=== PATIENT | male | born 1955 | race Caucasian/White ===

== ENCOUNTER 2023-03-14 07:09 | Outpatient (OUT) | payer MEDICARE, OTHER, SELFPAY ==
[2023-03-14 07:38] LABS: Basophils Absolute Auto 0.1 10^3/uL (0.0-0.1); Basophils Percent Auto 1.3 % (0.2-2.0); Eosinophils Absolute Auto 0.3 10^3/uL (0.0-0.7); Eosinophils Percent Auto 6.5 % (0.9-7.0); Hematocrit 41.7 % (42.0-54.0); Hemoglobin 13.8 g/dL (14.0-18.0); Immature Granulocytes Abs Auto 0.01 10^3/uL (0.00-0.03); Immature Granulocytes Pct Auto 0.2 % (0.0-0.5); Lymphocytes Absolute Auto 1.4 10^3/uL (1.2-3.8); Lymphocytes Percent Auto 29.6 % (20.5-60.0); Mean Corpuscular HGB Conc 33.1 g/dL (29.9-35.2); Mean Corpuscular Hemoglobin 32.2 pg (25.9-34.0); Mean Corpuscular Volume 97.2 fL (80.0-94.0); Monocytes Absolute Auto 0.7 10^3/uL (0.3-0.8); Neutrophils Absolute Auto 2.3 10^3/uL (1.4-6.5); Neutrophils Percent Auto 48.4 % (43.0-75.0); Platelet Count 220 10^3/uL (150-450); Red Blood Count 4.29 10^6/uL (4.70-6.10); Red Cell Distribution Width 11.9 % (11.0-15.0); White Blood Count 4.8 10^3/uL (4.0-11.0)
[2023-03-14 08:46] LABS: Alanine Aminotransferase 39 U/L (16-63); Albumin Globulin Ratio 1.3; Albumin Level 3.9 g/dL (3.4-5.0); Alkaline Phosphatase 56 U/L (46-116); Anion Gap 12.4; Aspartate Amino Transferase 25 U/L (15-37); BUN Creatinine Ratio 20.2; Bilirubin Direct 0.1 mg/dL (0.0-0.2); Bilirubin Total 0.4 mg/dL (0.2-1.0); Calcium 8.9 mg/dL (8.5-10.1); Carbon Dioxide 28.1 mmol/L (21.0-32.0); Chloride 106 mmol/L (98-107); Chol HDL Ratio 2.8; Cholesterol 210 mg/dL (<=200); Estimated GFR (African America >60 (>=60); Estimated GFR (Non-African Ame >60 (>=60); Globulin 3.1 g/dL; Glucose 93 mg/dL (74-106); HDL Cholesterol 75 mg/dL (40-60); Potassium 4.5 mmol/L (3.5-5.1); Sodium 142 mmol/L (136-145); Triglycerides 49 mg/dL (<=150); VLDL CHOLESTEROL 9.8 mg/dL
[2023-03-14 08:56] LABS: Prostate Specific Antigen Scrn 3.12 ng/mL (<=4.00)
== END 2023-03-14 07:10 | disposition home or self-care (01) ==
LOC: LAB 07:14
PROVIDERS: PCP Family Medicine; Visit Provider Family Medicine
DX: Z79.899 Other long term (current) drug therapy (principal); E55.9 Vitamin D deficiency, unspecified; E78.5 Hyperlipidemia, unspecified; Z12.5 Encounter for screening for malignant neoplasm of prostate
CPT/HCPCS: 36415; 80048; 80061; 80076; 82306; 85025; G0103

== ENCOUNTER 2024-03-26 07:46 | Outpatient (OUT) | payer MEDICARE, OTHER, SELFPAY ==
--- OUTSIDE RECORDS SUMMARY | 2024-03-26 08:00 | XMS_ITS | CCD ---
Author Organization [facility] Care Team Providers Care Human Resources Partner Name Role Phone JUAN, Tapan Luther Attending Unavailable NILL, Tapan Luther Attending Unavailable NILL ., DR BARNES Admitting Unavailable NILL ., DR BARNES Attending Unavailable NADERER, DR JAN Goodson Primary Care Unavailable NILL ., DR BARNES Consulting Unavailable DEVORAH, IRLANDA ROGER Consulting Unava ilable GEMBUS, DARIN Consulting Unavailable MISC, DR LOU Admitting Unavailable MISC, DR LOU Attending Unavailable NADERER, DR JAN Goodson Primary Care Unavailable MISC, DR LOU Consulting Unavailable NADERER, DR JAN Goodson Admitting Unavailable NADERER, DR JAN Goodsno Attending Unavailable NADERER, DR JAN Goodson Primary Care Unavailable NADERER, DR JAN Goodson Consulting Unavailable NILL ., DR BARNES Admitting Unavailable NILL ., DR BARNES Attending Unavailable NADERER, DR JAN Goodson Primary Care Unavailable NILL ., DR BARNES Consulting Unavailable Allergies Allergy Classification Reported Allergen(s) Allergy Type Date of Onset Reaction(s) Facility (1 source) No Known Medication Allergies; Translations: [No Known Medication Allergies] Propensity to adverse reactions (disorder) [facility] Repository Problems Active Problems Problem Classification Problem Date Documented Da te Episodic/Chronic Disorders of lipid metabolism (1 source) Hyperlipidemia, unspecified; Translations: [HYPERLIPIDEMIA UNSPECIFIED] Onset: 04-19-2022 Chronic Nutritional deficiencies (4 sources) Vitamin D deficiency, unspecified; Translations: [VITAMIN D DEFICIENCY UNSPECIFIED] Onset: 07-10-2022 Chronic Other screening for suspected conditions (not mental disorders or infectious disease) (5 sources) Encounter for screening for malignant neoplasm of colon; Translations: [Encounter for screening for malignant neoplasm of prostate] Onset: 03-12-2022 Episodic Unclassified (1 source) CONTACT W/AND (SUSP) EXPOS COVID-19; Translations: [CONTACT W/AND (SUSP) EXPOS COVID-19] Onset: 04-14-2022 Past or Other Problems Problem Classification Problem Date Documented Da te Episodic/Chronic Other aftercare (1 source) Other half-way (current) drug therapy; Translations: [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 Nestor Torres VIT D RANGES SEE BELOW Normal [facility] Comment on above: Result Comment: <20 ng/mL Vit D deficient 20 - <30 ng/mL Vit D insufficient 30 - 100 ng/mL Vit D sufficient >100 ng/mL Potential Toxicity Performed By: #### V ITAD #### [facility] [address] [place] [address] Dr. Nestor Torres Outside Colonoscopyon 2021 Outside Colonoscopy [id number] #1.00CD:127 Normal [facility] Reminderson 04-16-2022 Reminders - From: Brianna Estrada LPN To: N - Clinical; Sent: 04/16/2022 10:26:01 EST Show up: 03/14/2032 07:00:00 EST Subject: colonoscopy recall Due Date/Time: 04/13/2032 07:00:00 EST Reminder/Recall Patient is due for screening colonoscopy 04/13/2032. Normal [facility] Lab Reportson 04-11-2022 Lab Reports [id number] #1.00CD:127 Normal [facility]on SARS-CoV-2 (COVID-19) RNA LIZETT+probe Ql (Unsp spec) Not detected Normal NOT DETECTED [facility] Comment on above: Result Comment: This test is not yet approved or cleared by the [place] FDA. When there are no FDA-approved or cleared tests available, and other criteria are met, FDA can make tests available under an emergency access mechanism called an Emergency Use Authorization (EUA). The EUA for this test is supported by the [place] of Health and Human Service's (HHS's) declaration that circumstances exist to justify the emergency use of in vitro diagnostics for the detection and/or diagnosis of the virus that causes COVID-19. This EUA will remain in effect (meaning this test can be used) for the duration of the COVID-19 declaration justifying emergency of IVDs, unless it is terminated or revoked by FDA (after which the test may no longer be used). When diagnostic testing is negative, the possibility of a false negative should be considered in the context of a patient's recent exposures and the presence of clinical signs and symptoms consistent with SARS-CoV-2. Performed By: #### [facility] #### [facility] [address] [place] [address] Dr. Nestor Torres Consent for Procedure/Surger yon 04-05-2022 Consent for Procedure/Surgery [id number] #1.00CD:127 Normal [facility] Facesheeton 04-05-2022 Facesheet [id number] #1.00CD:127 Normal [facility] Physician Referralon 022 Physician Referral [id number] #1.00CD:127 Normal [facility] CBC AUTO DIFFon 03-07-2022 BASO # 0.1 103/ul Normal 0.0-0.1 [facility] Comment on above: Performed By: #### C BC #### [facility] [address] [place] [address] Dr. Nestor Torres Basophils/100 WBC (Bld) 0.8 % Normal 0.2-2.0 [facility] Comment on above: Performed By: #### C BC #### [facility] [address] [place] [address] Dr. Nestor Torres EO # 0.3 103/ul Normal 0.0-0.7 [facility] Comment on above: Performed By: #### C BC #### [facility] [address] [place] [address] Dr. Nestor Torres Eosinophils/100 WBC (Bld) 4.7 % Normal 0.9-7.0 [facility] Comment on above: Performed By: #### C BC #### [facility] [address] [place] [address] Dr. Nestor Torres Erythrocyte distribution width (RBC) [Ratio] 14.6 % Normal 11.0-15.0 [facility] Comment on above: Performed By: #### C BC #### [facility] [address] [place] [address] Dr. Nestor Torres Hematocrit (Bld) [Volume fraction] 40.5 % Critically low 42.0-54.0 [facility] Comment on above: Performed By: #### C BC #### [facility] [address] [place] [address] Dr. Nestor Torres Hemoglobin (Bld) [Mass/Vol] 13.3 g/dL Critically low 14.0-18.0 [facility] Comment on above: Performed By: #### C BC #### [facility] [address] [place] [address] Dr. Nestor Torres IG # 0.03 10e3/ul Normal 0.00-0.03 [facility] Comment on above: Performed By: #### C BC #### [facility] [address] [place] [address] Dr. Nestor Torres IG % 0.5 % Normal 0.0-0.5 [facility] Comment on above: Performed By: #### C BC #### [facility] [address] [place] [address] Dr. Nestor Torres LYMPH # 1.2 103/ul Normal 1.2-3.8 [facility] Comment on above: Performed By: #### C BC #### [facility] [address] [place] [address] Dr. Nestor Torres Lymphocytes/100 WBC (Bld) 18.5 % Critically low 20.5-60.0 [facility] Comment on above: Performed By: #### C BC #### [facility] [address] [place] [address] Dr. Nestor Torres MANUAL DIFF REQ NO Normal [facility] Comment on above: Performed By: #### C BC #### [facility] [address] [place] [address] Dr. Nestor Torres MCH (RBC) [Entitic mass] 30.0 pg Normal 25.9-34.0 [facility] Comment on above: Performed By: #### C BC #### [facility] [address] [place] [address] Dr. Nestor Torres MCHC (RBC) [Mass/Vol] 32.8 g/dL Normal 29.9-35.2 [facility] Comment on above: Performed By: #### C BC #### [facility] [address] [place] [address] Dr. Nestor Torres MCV (RBC) [Entitic vol] 91.4 fL Normal 80.0-94.0 [facility] Comment on above: Performed By: #### C BC #### [facility] [address] [place] [address] Dr. Nestor Torres MONO # 0.8 103/ul Normal 0.3-0.8 [facility] Comment on above: Performed By: #### C BC #### [facility] [address] [place] [address] Dr. Nestor Torres Monocytes/100 WBC (Bld) 12.0 % Normal 1.7-12.0 [facility] Comment on above: Performed By: #### C BC #### [facility] [address] [place] [address] Dr. Nestor Torres NEUT # 4.2 103/ul Normal 1.4-6.5 [facility] Comment on above: Performed By: #### C BC #### [facility] [address] [place] [address] Dr. Nestor Torres Neutrophils/100 WBC (Bld) 63.5 % Normal 43.0-75.0 [facility] Comment on above: Performed By: #### C BC #### [facility] [address] [address] [address] Nestor Torres Platelet mean volume (Bld) [Entitic vol] 10.8 fL Normal 9.5-13.5 [facility] Comment on above: Performed By: #### C BC #### [facility] [address] [place] [address] Dr. Nestor Torres PLT 277 103/ul Normal 150-450 [facility] Comment on above: Performed By: #### C BC #### [facility] [address] [address] [address] Nestor Torres RBC 4.43 106/ul Critically low 4.70-6.10 [facility] Comment on above: Performed By: #### C BC #### [facility] [address] [place] [address] Dr. Nestor Torres WBC 6.7 103/ul Normal 4.0-11.0 [facility] Comment on above: Performed By: #### C BC #### [facility] [address] [place] [address] Dr. Nestor Torres LIPID PROFILEon 03-07-2022 CHOL-HDL RATIO NORM SEE BELOW Normal [facility] Comment on above: Result Comment: 3.3 - 4.4 LOW RISK 4.4 - 7.1 AVERAGE RISK 7.1 - 11.0 MODERATE RISK >11.0 HIGH RISK Performed By: #### L KRANTHI IVERSON, LIPID #### [facility] [address] [place] [address] Dr. Nestor Torres Cholesterol [Mass/Vol] 192 mg/dL Normal <=200 [facility] Comment on above: Performed By: #### L KRANTHI IVERSON, LIPID #### [facility] [address] [place] [address] Dr. Nestor Torres Cholesterol in HDL [Mass/Vol] 69 mg/dL Critically high 40-60 [facility] Comment on above: Performed By: #### L KRANTHI IVERSON, LIPID #### [facility] [address] [place] [address] Dr. Nestor Torres Cholesterol in LDL [Mass/Vol] 103.0 mg/dL Normal [facility] Comment on above: Performed By: #### L IVKRANTHI FREIRE, LIPID #### [facility] [address] [place] [address] Dr. Nestor Torres Cholesterol.total/Ch olesterol in HDL [Mass ratio] 2.8 {ratio} Normal [facility] Comment on above: Performed By: #### L IVTANI BMP, LIPID #### [facility] [address] [address] [address] Nestor Torres HDL NORMAL > or = 60 mg/dl - LOW CARDIOVASCULAR RISK <40 mg/dl - HIGH CARDIOVASCULAR RISK Normal [facility] Comment on above: Performed By: #### L IVKRANTHI FREIRE, LIPID #### [facility] [address] [place] [address] Dr. Nestor Torres LDL CALC NORMAL SEE BELOW Normal [facility] Comment on above: Result Comment: <100 mg/dl OPTIMAL 100 - 129 mg/dl NEAR OR ABOVE OPTIMAL 130 - 159 mg/dl BORDERLINE HIGH 160 - 189 mg/dl HIGH >190 mg/dl VERY HIGH Performed By: #### L IVKRANTHI FREIRE, LIPID #### [facility] [address] [place] [address] Dr. Nestor Torres Triglyceride [Mass/Vol] 100 mg/dL Normal <=150 [facility] Comment on above: Performed By: #### L IVKRANTHI FREIRE, LIPID #### [facility] [address] [place] [address] Dr. Nestor Torres VLDL CALC 20.0 mg/dL Normal [facility] Comment on above: Performed By: #### L IVTANI BMP, LIPID #### [facility] [address] [address] [address] Nestor Torres LIVER PROFILEon 03-07-2022 Albumin [Mass/Vol] 4.1 g/dL Normal 3.4-5.0 [facility] Comment on above: Performed By: #### L IVTANI BMP, LIPID #### [facility] [address] [address] [address] Nestor Torres Albumin/Globulin [Mass ratio] 1.4 {ratio} Normal [facility] Comment on above: Performed By: #### L IVER, BMP, LIPID #### [facility] [address] [place] [address] Dr. Nestor Torres ALP [Catalytic activity/Vol] 57 U/L Normal 46-116 [facility] Comment on above: Performed By: #### L IVER, BMP, LIPID #### [facility] [address] [place] [address] Dr. Nestor Torres ALT [Catalytic activity/Vol] 43 U/L Normal 16-63 [facility] Comment on above: Performed By: #### L IVER, BMP, LIPID #### [facility] [address] [place] [address] Dr. Nestor Torres AST [Catalytic activity/Vol] 26 U/L Normal 15-37 [facility] Comment on above: Performed By: #### L IVER, BMP, LIPID #### [facility] [address] [place] [address] Dr. Nestor Torres BILI, CONJUGATED 0.1 mg/dL Normal 0.0-0.2 [facility] Comment on above: Performed By: #### L IVER, BMP, LIPID #### [facility] [address] [place] [address] Dr. Nestor Torres Bilirubin [Mass/Vol] 0.4 mg/dL Normal 0.2-1.0 [facility] Comment on above: Performed By: #### L IVER, BMP, LIPID #### [facility] [address] [place] [address] Dr. Nestor Torres Globulin (S) [Mass/Vol] 2.9 g/dL Normal [facility] Comment on above: Performed By: #### L IVER, BMP, LIPID #### [facility] [address] [place] [address] Dr. Nestor Torres Protein [Mass/Vol] 7.0 g/dL Normal 6.4-8.2 [facility] Comment on above: Performed By: #### L IVER, BMP, LIPID #### [facility] [address] [place] [address] Dr. Nestor Torres PROF CHEM 8 (BAS METB)on Anion gap [Moles/Vol] 10.6 mmol/L Normal [facility] Comment on above: Performed By: #### L IVER, BMP, LIPID #### [facility] [address] [place] [address] Dr. Nestor Torres Calcium [Mass/Vol] 9.6 mg/dL Normal 8.5-10.1 [facility] Comment on above: Performed By: #### L IVER, BMP, LIPID #### [facility] [address] [place] [address] Dr. Nestor Torres Chloride [Moles/Vol] 105 mmol/L Normal 98-107 [facility] Comment on above: Performed By: #### L IVER, BMP, LIPID #### [facility] [address] [place] [address] Dr. Nestor Torres CO2 [Moles/Vol] 28.2 mmol/L Normal 21.0-32.0 [facility] Comment on above: Performed By: #### L IVER, BMP, LIPID #### [facility] [address] [place] [address] Dr. Nestor Torres Creatinine [Mass/Vol] 1.03 mg/dL Normal 0.70-1.30 [facility] Comment on above: Performed By: #### L IVER, BMP, LIPID #### [facility] [address] [place] [address] Dr. Nestor Torres EGFR-AF MALAGASY >60 Normal >=60 [facility] Comment on above: Performed By: #### L IVER, BMP, LIPID #### [facility] [address] [place] [address] Dr. Nestor Torres EGFR-NON AF MALAGASY >60 Normal >=60 [facility] Comment on above: Performed By: #### L IVER, BMP, LIPID #### [facility] [address] [place] [address] Dr. Nestor Torres Glucose [Mass/Vol] 113 mg/dL Critically high 74-106 [facility] Comment on above: Performed By: #### L IVER, BMP, LIPID #### [facility] [address] [address] [address] Nestor Torres Potassium [Moles/Vol] 3.8 mmol/L Normal 3.5-5.1 [facility] Comment on above: Performed By: #### L IVER, BMP, LIPID #### [facility] [address] [address] [address] Nestor Torres Sodium [Moles/Vol] 140 mmol/L Normal 136-145 [facility] Comment on above: Performed By: #### L IVER, BMP, LIPID #### [facility] [address] [address] [address] Nestor Torres Urea nitrogen [Mass/Vol] 22.0 mg/dL Critically high 7.0-18.0 [facility] Comment on above: Performed By: #### L IVER, BMP, LIPID #### [facility] [address] [place] [address] Dr. Nestor Torres Urea nitrogen/Creatinine [Mass ratio] 21.4 mg/mg Normal [facility] Comment on above: Performed By: #### L IVER, BMP, LIPID #### [facility] [address] [place] [address] Dr. Nestor Torres VITAMIN D 25 OHon 03-07-2022 VIT D 25-OH 29.6 ng/mL Normal [facility] Comment on above: Performed By: #### P DON, VITAD #### [facility] [address] [place] [address] Dr. Nestor Torres VIT D RANGES SEE BELOW Normal [facility] Comment on above: Result Comment: <20 ng/mL Vit D deficient 20 - <30 ng/mL Vit D insufficient 30 - 100 ng/mL Vit D sufficient >100 ng/mL Potential Toxicity Performed By: #### P SASC, VITAD #### [facility] [address] [place] [address] Dr. Nestor Torres Encounters Encounter Date Encounter Type Care Provider Facility Start: 07-10-2022 End: [address] DOCTOR MARTINEZ Facility:[facility] Start: 04-14-2022 Encounter for prepro cedural laboratory examination DR TAPAN WOODS . [facility] Start: 04-13-2022 End: 04-14-2022 ambulatory Tapan WOODS Facility:CD:[id number] Start: 04-10-2022 End: 04-11-[address] TAPAN WOODS . Facility:[facility] Start: 04-10-2022 End: 04-11-2022 Encounter for preprocedural laboratory examination DR TAPAN WOODS . Facility:[facility] Start: 04-04-2022 End: 04-05-2022 ambulatory Tapan WOODS Facility:[facility]3] Start: 03-21-2022 ambulatory Tapan WOODS Facility:[facility] Start: 03-07-2022 End: 03-08-[address] JAN COLON Facility:[facility] Procedures Date Procedure Procedure Detail Performing Clinician Start: 03-07-[address] LOGAN WOODS . Comment on above: Performed By: #### P [facility], VITAD #### [facility] [address] [place] [address] Dr. Nestor Torres Payers Date Payer Category Payer Medicare [id number] 1961 Private Health Insurance [id number] 1955 Unknown [id number] [id number] 1955 Unknown [id number] 1955 Unknown [id number] 2.16.84 [id number] 1955 Unknown [id number] 2.16.84 [id number] 1955 Unknown [id number] 2.16.84 [id number] 1955 Unknown [id number] 2.16.84 [id number] Clinical Note 04-13-2022 Note Date & Type Note Facility 04-13-2022 Note OPERATIVE NOTE OPERATION DATE: 04/13/2022 PREOPERATIVE DIAGNOSIS: Colorectal screening. POSTOPERATIVE DIAGNOSIS: Normal colonoscopy to cecum. PROCEDURE: Colonoscopy to cecum. SURGEON: Tapan Woods M.D. ANESTHESIA: Monitored anesthesia care. ESTIMATED BLOOD LOSS: Zero. INDICATIONS AND CONSENT: Patient is a 66-year-old male who presents for colorectal screening. Indications, risks, benefits, alternatives of proceeding with colonoscopy were explained extensively to the patient, including the risks of bleeding, colon perforation or anesthetic complications. All of his questions were answered. Informed consent was obtained. PROCEDURE: Patient brought to the operating room, placed in the left lateral decubitus position. Monitored anesthesia care was provided. Rectal exam was performed which showed no masses or blood. The scope was inserted into the anal canal. Under direct visualization was advanced. With the aid of abdominal compression, it was advanced to the cecum where cecal markings were clearly identified. Upon withdrawal of the scope, mucosal surfaces were carefully examined. There were no mass lesions or polyps. No inflammatory changes or ulcerations. No significant diverticulosis. The scope was retroflexed in the anal canal. There were noted to be some prominent rectal veins. Scope was then withdrawn. Patient tolerated procedure well, was sent to recovery room in good condition. CC: Jan Colon M.D. [facility] Clinical Note 04-04-2022 Note Date & Type Note Facility 04-04-2022 Note Chief Complaint consultation for screening colonoscopy HPI Staff 66 year old male presents on consultation from Dr. Colon for screening colonoscopy. Denies abdominal or rectal pain. No rectal bleeding or change in bowel habits. Denies nausea or vomiting. No unexplained weight loss. Last colonoscopy completed greater than 10 years ago. No known family history of colon cancer, patient is adopted. History of Present Illness 66 yo male referred for colorectal screening; denies change in bms or blood in stools; no abdominal complaints; denies asa or NSAID use, no SBE prophylaxis; no previous abdominal operations, last colonoscopy > 10 years ago, reportedly wnl; no fmhx of GI malignancy or IBD; no tobacco use. Review of Systems PHQ Score Initial Depression Screen Score: 0 ROS - Provider Constitutional: no fever, no sweats, no weight loss. Eyes: no glasses, no blurred vision, no visual loss. ENMT: no dentures, no hoarseness, no swallowing difficulties, no hearing loss, no ear infection(s), no nose bleeds. Cardiovascular: normal blood pressure, no chest pain, regular heartbeat, no heart murmur. Respiratory: no shortness of breath, no cough, no asthma, no wheezing. Gastrointestinal: no nausea, no vomiting, no diarrhea, no constipation, no blood in stool, no change in bowel habits, no abdominal pain, no hepatitis. Genitourinary: no kidney stones, no urine infection, no dysuria. Musculoskeletal: no pain, no weakness. Skin: no changing moles, no rash, no skin lumps. Neurologic: no seizures, no epilepsy, no headache. Psychiatric: no emotional or psychiatric problem. Heme/Lymph: no bleeding problems, no anemia, no blood clots, no transfusions. Allergy/Immunologic: no swollen lymph nodes/glands, no IV drug abuse. Other: Additional ROS info: Except as noted in the above Review of Systems and in the History of Present Illness, all other systems have been reviewed and are negative or noncontributory. Physical Exam Vitals & Measurements HR: 72(Peripheral) RR: 16 BP: 160/98 HT: 70 in HT: 177.8 cm WT: 74.8 kg WT: 164.56 lb BMI: 23.66 HEENT: normal conjunctiva, sclera clear, no scleral icterus, EOM intact, PERRLA, oral mucosa moist without lesions. Neck: trachea midline, no mass, symmetric, no thyromegaly or nodules, no adenopathy Respiratory: lungs CTA, respirations non labored. Cardiovascular: regular rate and rhythm, no murmur, no pedal edema or varicosities. Gastrointestinal: soft, non distended, no tenderness, no masses, no palpable hernias, diastasis recti no, no hepatosplenomegaly; normal bs Lymphatic: no cervical adenopathy, Musculoskeletal: normal gait, digits and nails without infection, nodes, cyanosis, clubbing. Skin: no rashes, no lesions, no ulcers, no subcutaneous nodules, induration. Psychiatric/Neuro: oriented to time, place, person, judgement normal, affect appropriate for age, insight intact, no focal deficits. Tests: labs reviewed,, review of old records completed, Discussed surgical options, risks, and possible complications with patient.! Assessment/Plan 1. Screening for malignant neoplasm of colon (Z12.11: Encounter for screening for malignant neoplasm of colon) plan colonoscopy under anesthesia, informed consent obtained. Follow-up No qualifying data available Problem List/Past Medical History Ongoing Allergic rhinitis BMI 23.0-23.9, adult BPPV (benign paroxysmal positional vertigo) Dyslipidemia Insomnia Left foot drop Muscle wasting and atrophy, not elsewhere classified, left lower leg Sarcoidosis Screening for malignant neoplasm of colon Spinal stenosis in cervical region Vitamin D deficiency Historical No qualifying data Procedure/Surgical History Arthroscopy of knee, Cervical laminectomy, Clavicle, Colonoscopy, Rotator cuff repair, Tibia. Medications Multi Vitamins oral tablet, 1 tab(s), Oral, Daily Allergies No Known Allergies No Known Medication Allergies Social History Alcohol - Denies Alcohol Use, 04/04/2022 Substance Abuse - Denies Substance Abuse, 04/04/2022 Tobacco Never (less than 100 in lifetime) Tobacco Use:. Never Smokeless Tobacco Use:., 04/04/2022 Family History Patient was adopted [facility] Comment on above: Result Comment: Elec tronically Signed By: JUAN BASILIO, Tapan Pedro\Date and Time Signed: 04/04/22 16:33 EST Summary Purpose Family History No Family History Records FoundNo Family History Records Found Advance Directives No Advanced Directives Records FoundNo Advanced Directives Records Found Additional Source Comments (unrecognized sect ion and content) No Status Records FoundNo Status Records Found INFORMATION SOURCE (unrecogn ized section and content) DATE CREATED AUTHOR 04/26/2022 [facility] DATE CREATED AUTHOR AUTHOR'S ORGANIZ ATION 07/14/2022 [facility] FOR RECORDS PERTAINING TO PATIENTS WHO ARE OR HAVE BEEN ENROLLED IN A CHEMICAL DEPENDENCY/SUBSTANCEABUSE PROGRAM, SOME INFORMATION MAY BE OMITTED. This clinical summary was aggregated from multiple sources. Caution should be exercised in using it in the provision of clinical care. This summary normalizes information from multiple sources, and as a consequence, information in this document may materially change the coding, format and clinical context of patient data. In addition, data may be omitted in some cases. CLINICAL DECISIONS SHOULD BE BASED ON THE PRIMARY CLINICAL RECORDS. [employer] [facility]. provides no warranty or guarantee of the accuracy or completeness of information in this document.
[2024-03-26 08:28] LABS: Basophils Absolute Auto 0.1 10^3/uL (0.0-0.1); Basophils Percent Auto 1.1 % (0.2-2.0); Eosinophils Absolute Auto 0.3 10^3/uL (0.0-0.7); Hematocrit 39.9 % (42.0-54.0); Hemoglobin 13.2 g/dL (14.0-18.0); Immature Granulocytes Abs Auto 0.02 10^3/uL (0.00-0.03); Immature Granulocytes Pct Auto 0.4 % (0.0-0.5); Lymphocytes Absolute Auto 1.6 10^3/uL (1.2-3.8); Lymphocytes Percent Auto 28.1 % (20.5-60.0); Mean Corpuscular HGB Conc 33.1 g/dL (29.9-35.2); Mean Corpuscular Hemoglobin 32.7 pg (25.9-34.0); Mean Corpuscular Volume 98.8 fL (80.0-94.0); Mean Platelet Volume 10.5 fL (9.5-13.5); Monocytes Absolute Auto 0.7 10^3/uL (0.3-0.8); Monocytes Percent Auto 12.6 % (1.7-12.0); Neutrophils Percent Auto 51.8 % (43.0-75.0); Platelet Count 204 10^3/uL (150-450); Red Blood Count 4.04 10^6/uL (4.70-6.10); Red Cell Distribution Width 12.1 % (11.0-15.0); White Blood Count 5.7 10^3/uL (4.0-11.0)
[2024-03-26 08:45] LABS: Alanine Aminotransferase 28 U/L (16-63); Albumin Globulin Ratio 1.4; Albumin Level 3.7 g/dL (3.4-5.0); Alkaline Phosphatase 57 U/L (46-116); Anion Gap 11.6; Aspartate Amino Transferase 18 U/L (15-37); BUN Creatinine Ratio 17.7; Bilirubin Direct 0.1 mg/dL (0.0-0.2); Bilirubin Total 0.7 mg/dL (0.2-1.0); Calcium 8.9 mg/dL (8.5-10.1); Carbon Dioxide 30.4 mmol/L (21.0-32.0); Chloride 107 mmol/L (98-107); Chol HDL Ratio 2.7; Cholesterol 199 mg/dL (<=200); Estimated GFR (African America >60 (>=60 mL/min/1.73m^2); Estimated GFR (Non-African Ame >60 (>=60 mL/min/1.73m^2); Globulin 2.7 g/dL; Glucose 88 mg/dL (74-106); HDL Cholesterol 75 mg/dL (40-60); Sodium 145 mmol/L (136-145); Thyroid Stimulating Hormone 1.746 uIU/mL (0.358-3.740); Total Protein 6.4 g/dL (6.4-8.2); Triglycerides 52 mg/dL (<=150); VLDL CHOLESTEROL 10.4 mg/dL
[2024-03-26 08:47] LABS: Prostate Specific Antigen Scrn 2.28 ng/mL (<=4.00)
== END 2024-03-26 07:47 | disposition home or self-care (01) ==
LOC: LAB 07:57
PROVIDERS: PCP Family Medicine; Visit Provider Family Medicine
DX: Z79.899 Other long term (current) drug therapy (principal); E78.5 Hyperlipidemia, unspecified; R53.83 Other fatigue; Z12.5 Encounter for screening for malignant neoplasm of prostate
CPT/HCPCS: 36415; 80048; 80061; 80076; 84443; 85025; G0103

== ENCOUNTER 2024-06-16 12:47 | Outpatient (OUT) | payer MEDICARE, OTHER, SELFPAY ==
--- OUTSIDE RECORDS SUMMARY | 2024-06-16 12:57 | XMS_ITS | CCD ---
Author Organization [facility] Care Team Providers Care Director Of Learning Name Role Phone Cameron WOODS Attending Unavailable NILL, Cameron Luther Attending Unavailable NILL ., DR BARNES Admitting Unavailable NILL ., DR BARNES Attending Unavailable NADERER, DR GEOVANNY Goodson Primary Care Unavailable NILL ., DR BARNES Consulting Unavailable DEVORAH, IRLANDA ROGER Consulting Unava ilable GEMBUS, DARIN Consulting Unavailable MISC, DR LOU Admitting Unavailable MISC, DR LOU Attending Unavailable NADERER, DR GEOVANNY Goodson Primary Care Unavailable MISC, DR LOU Consulting Unavailable NADERER, DR GEOVANNY Goodson Admitting Unavailable NADERER, DR GEOVANNY Goodson Attending Unavailable NADERER, DR GEOVANNY Goodson Primary Care Unavailable NADERER, DR GEOVANNY Goodson Consulting Unavailable NILL ., DR BARNES Admitting Unavailable NILL ., DR BARNES Attending Unavailable NADERER, DR GEOVANNY Goodson Primary Care Unavailable NILL ., DR BARNES Consulting Unavailable Geovanny Colon MD Primary Care Provider GEOVANNY COLON Attending Unavailable NADERER, GEOVANNY Attending Unavailable Allergies Allergy Classification Reported Allergen(s) Allergy Type Date of Onset Reaction(s) Facility (1 source) No Known Medication Allergies; Translations: [No Known Medication Allergies] Propensity to adverse reactions (disorder) [facility] Repository Medications Current Medications Medication Drug Class(es) Dates Sig (Normalized) Sig (Original) baclofen 20 mg oral tablet (7 sources) gamma-Aminobutyr ic Acid-ergic Agonist Start: 01-03-2024 take 1 tablet by mouth three times daily as needed for muscle spasms baclofen (Lioresal) 20 MG tablet Indications: Muscle spasm Take 1 tablet (20 mg) by mouth 3 (three) times a day as needed for muscle spasms 60 tablet 1 01/03/2024 Active traZODone hydrochloride 50 mg oral tablet (6 sources) Serotonin Reuptake Inhibitor Start: 03-25-2024 take 1 tablet by mouth at bedtime traZODone (Desyrel) 50 MG tablet Indications: Primary insomnia Take 1 tablet (50 mg) by mouth at bedtime 30 tablet 5 03/25/2024 Active Problems Active Problems Problem Classification Problem Date Documented Da te Episodic/Chronic Acquired foot deformities (6 sources) Left foot drop; Translations: [Foot drop, left foot] Onset: 03-25-2024 03-25-2024 Episodic Disorders of lipid metabolism (9 sources) Hyperlipidemia, unspecified; Translations: [Dyslipidemia] Onset: 04-19-2022 03-25-2024 Chronic Immunity disorders (6 sources) Sarcoidosis; Translations: [Sarcoidosis, unspecified] Onset: 03-25-2024 03-25-2024 Chronic Malaise and fatigue (8 sources) Fatigue; Translations: [Other fatigue] Onset: 03-25-2024 03-25-2024 Episodic Miscellaneous mental health disorders (8 sources) Primary insomnia; Translations: [Primary insomnia] Onset: 03-25-2024 03-25-2024 Chronic Nutritional deficiencies (10 sources) Vitamin D deficiency, unspecified; Translations: [Vitamin D deficiency] Onset: 07-10-2022 Chronic Other aftercare (8 sources) Long-term current use of drug therapy; Translations: [Other alf (current) drug therapy] Onset: 03-25-2024 03-25-2024 Episodic Other circulatory disease (8 sources) Idiopathic hypotension; Translations: [Idiopathic hypotension] Onset: 03-25-2024 03-25-2024 Episodic Other connective tissue disease (6 sources) Atrophy of muscle of left lower leg; Translations: [Muscle wasting and atrophy, not elsewhere classified, left lower leg] Onset: 03-25-2024 03-25-2024 Episodic Other screening for suspected conditions (not mental disorders or infectious disease) (13 sources) Encounter for screening for malignant neoplasm of colon; Translations: [Encounter for screening for malignant neoplasm of prostate] Onset: 03-12-2022 Episodic Unclassified (1 source) CONTACT W/AND (SUSP) EXPOS COVID-19; Translations: [CONTACT W/AND (SUSP) EXPOS COVID-19] Onset: 04-14-2022 Past or Other Problems Problem Classification Problem Date Documented Da te Episodic/Chronic Mood disorders (2 sources) Mood disorders Onset: 06-01-2024 06-01-2024 Other aftercare (1 source) Other alf (current) drug therapy; Translations: [[facility] PROCESS CURRENT DRUG THERAPY] Onset: 03-12-2022 Episodic Results Test Name Value Interpretation Reference Range Facility ALL CBC WITH AUTO DIFFon BASOPHILS ABSOLUTE AUTO 0.1 [facility] Basophils/100 WBC (Bld) 1.1 % 0.2 - 2.0 % [facility] Eosinophils/100 WBC (Bld) 6 % 0.9 - 7.0 % [facility] Erythrocyte distribution width (RBC) [Ratio] 12.1 % 11.0 - 15.0 % [facility] Hematocrit (Bld) [Volume fraction] 39.9 % Low 42.0 - 54.0 % [facility] Hemoglobin (Bld) [Mass/Vol] 13.2 g/dL Low 14.0 - 18.0 g/dL [facility] IMMATURE GRANULOCYTES ABS AUTO 0.02 [facility] Immature granulocytes/100 WBC (Bld) 0.4 % 0.0 - 0.5 % [facility] Interpretation and review of laboratory results Abnormal [facility] LYMPHOCYTES ABSOLUTE AUTO 1.6 [facility] Lymphocytes/100 WBC (Bld) 28.1 % 20.5 - 60.0 % [facility] MCH (RBC) [Entitic mass] 32.7 pg 25.9 - 34.0 pg [facility] MCHC (RBC) [Mass/Vol] 33.1 g/dL 29.9 - 35.2 g/dL [facility] MCV (RBC) [Entitic vol] 98.8 fL High 80.0 - 94.0 fL [facility] MONOCYTES ABSOLUTE AUTO 0.7 [facility] Monocytes/100 WBC (Bld) 12.6 % High 1.7 - 12.0 % [facility] NEUTROPHILS ABSOLUTE AUTO 3 [facility] Neutrophils/100 WBC (Bld) 51.8 % 43.0 - 75.0 % [facility] Platelet mean volume (Bld) [Entitic vol] 10.5 fL 9.5 - 13.5 fL [facility] are [facility] EO # 0.3 [facility] PLT 204 [facility] RBC 4.04 Low [facility] WBC 5.7 [facility] VITAMIN D 25 OHon 07-10-2022 VIT D 25-OH 29.4 ng/mL Normal [facility] Comment on above: Performed By: #### V ITAD #### [facility] [address] [place], [place] [address] Dr. Nestor Torres VIT D RANGES SEE BELOW Normal [facility] Comment on above: Result Comment: <20 ng/mL Vit D deficient 20 - <30 ng/mL Vit D insufficient 30 - 100 ng/mL Vit D sufficient >100 ng/mL Potential Toxicity Performed By: #### V ITAD #### [facility] [address] [place], [place] [address] Dr. Nestor Torres Outside Colonoscopyon 2021 Outside Colonoscopy [id number] #1.00CD:127 Normal [facility] Reminderson 04-16-2022 Reminders - From: Brianna Estrada LPN To: GSN - Clinical; Sent: 04/16/2022 10:26:01 EST Show up: 03/14/2032 07:00:00 EST Subject: colonoscopy recall Due Date/Time: 04/13/2032 07:00:00 EST Reminder/Recall Patient is due for screening colonoscopy 04/13/2032. Normal [facility] Lab Reportson 04-11-2022 Lab Reports [id number] #1.00CD:127 Normal [facility] Covid-19 PCR (CVDTBH)on SARS-CoV-2 (COVID-19) RNA LIZETT+probe Ql (Unsp spec) Not detected Normal NOT DETECTED [facility] Comment on above: Result Comment: This test is not yet approved or cleared by the [place] FDA. When there are no FDA-approved or cleared tests available, and other criteria are met, FDA can make tests available under an emergency access mechanism called an Emergency Use Authorization (EUA). The EUA for this test is supported by the [place] of Health and Human Service's (HHS's) declaration [...] consistent with SARS-CoV-2. Performed By: #### [facility] #### [facility] [address] [place] [address] Dr. Nestor Torres Consent for Procedure/Surger yon 04-05-2022 Consent for Procedure/Surgery [id number] #1.00CD:127 Normal [facility] Facesheeton 04-05-2022 Facesheet [id number] #1.00CD:127 Normal [facility] Physician Referralon 022 Physician Referral [id number] #1.00CD:127 Normal [facility] CBC AUTO DIFFon 03-07-2022 BASO # 0.1 103/ul Normal 0.0-0.[address] [facility] Comment on above: Performed By: #### C BC #### [facility] [address] [place] [address] Dr. Nestor Torres Basophils/100 WBC (Bld) 0.8 % Normal 0.2-2.0 [facility] Comment on above: Performed By: #### C BC #### [facility] [address] [place] [address] Dr. Nestor Torres EO # 0.3 103/ul Normal 0.0-0.7 [facility] Comment on above: Performed By: #### C BC #### [facility] [address] [place] [address] Dr. Nestor Torres Eosinophils/100 WBC (Bld) 4.7 % Normal 0.9-7.0 [facility] Comment on above: Performed By: #### C BC #### [facility] [address] [place] [address] Dr. Nestor Torres Erythrocyte distribution width (RBC) [Ratio] 14.6 % Normal 11.0-15.[address] [facility] Comment on above: Performed By: #### C BC #### [facility] [address] [place] [address] Dr. Nestor Torres Hematocrit (Bld) [Volume fraction] 40.5 % Critically low 42.0-54.[address] [facility] Comment on above: Performed By: #### C BC #### [facility] [address] [place] [address] Dr. Nestor Torres Hemoglobin (Bld) [Mass/Vol] 13.3 g/dL Critically low 14.0-18.[address] [facility] Comment on above: Performed By: #### C BC #### [facility] [address] [place] [address] Dr. Nestor Torres IG # 0.03 10e3/ul Normal 0.00-0.[address] [facility] Comment on above: Performed By: #### C BC #### [facility] [address] [place] [address] Dr. Nestor Torres IG % 0.5 % Normal 0.0-0.[address] [facility] Comment on above: Performed By: #### C BC #### [facility] [address] [place] [address] Dr. Nestor Torres LYMPH # 1.2 103/ul Normal 1.2-3.[address] [facility] Comment on above: Performed By: #### C BC #### [facility] [address] [place] [address] Dr. Nestor Torres Lymphocytes/100 WBC (Bld) 18.5 % Critically low 20.5-60.[address] [facility] Comment on above: Performed By: #### C BC #### [facility] [address] [place] [address] Dr. Nestor Torres MANUAL DIFF REQ NO Normal [facility] Comment on above: Performed By: #### C BC #### [facility] [address] [place] [address] Dr. Nestor Torres MCH (RBC) [Entitic mass] 30.0 pg Normal 25.9-34.[address] [facility] Comment on above: Performed By: #### C BC #### [facility] [address] [place] [address] Dr. Nestor Torres MCHC (RBC) [Mass/Vol] 32.8 g/dL Normal 29.9-35.2 [facility] Comment on above: Performed By: #### C BC #### [facility] [address] [place] [address] Dr. Nestor Torres MCV (RBC) [Entitic vol] 91.4 fL Normal 80.0-94.[address] [facility] Comment on above: Performed By: #### C BC #### [facility] [address] [place] [address] Dr. Nestor Torres MONO # 0.8 103/ul Normal 0.3-0.[address] [facility] Comment on above: Performed By: #### C BC #### [facility] [address] [place] [address] Dr. Nestor Torres Monocytes/100 WBC (Bld) 12.0 % Normal 1.7-12.[address] [facility] Comment on above: Performed By: #### C BC #### [facility] [address] [place] [address] Dr. Nestor Torres NEUT # 4.2 103/ul Normal 1.4-6.5 [facility] Comment on above: Performed By: #### C BC #### [facility] [address] [place] [address] Dr. Nestor Torres Neutrophils/100 WBC (Bld) 63.5 % Normal 43.0-75.0 [facility] Comment on above: Performed By: #### C BC #### [facility] [address] [place] [address] Dr. Nestor Torres Platelet mean volume (Bld) [Entitic vol] 10.8 fL Normal 9.5-13.5 [facility] Comment on above: Performed By: #### C BC #### [facility] [address] [place] [address] [address] Nestor Torres PLT 277 103/ul Normal 150-[address] [facility] Comment on above: Performed By: #### C BC #### [facility] [address] [place] [address] [address] Nestor Torres RBC 4.43 106/ul Critically low 4.70-6.10 [facility] Comment on above: Performed By: #### C BC #### [facility] [address] [place] [address] [address] Nestor Torres WBC 6.7 103/ul Normal 4.0-11.[address] [facility] Comment on above: Performed By: #### C BC #### [facility] [address] [place] [address] Dr. Nestor Torres LIPID PROFILEon 03-07-2022 CHOL-HDL RATIO NORM SEE BELOW Normal [facility] Comment on above: Result Comment: 3.3 - 4.4 LOW RISK 4.4 - 7.1 AVERAGE RISK 7.1 - 11.0 MODERATE RISK >11.0 HIGH RISK Performed By: #### L KRANTHI IVERSON, LIPID #### [facility] [address] [place] [address] Dr. Nestor Torres Cholesterol [Mass/Vol] 192 mg/dL Normal <=[address] [facility] Comment on above: Performed By: #### L IVTANI BMP, LIPID #### [facility] [address] [place] [address] Dr. Nestor Torres Cholesterol in HDL [Mass/Vol] 69 mg/dL Critically high 40-[address] [facility] Comment on above: Performed By: #### L IVTANI BMP, LIPID #### [facility] [address] [place] [address] Dr. Nestor Torres Cholesterol in LDL [Mass/Vol] 103.0 mg/dL Normal [facility] Comment on above: Performed By: #### L IVER BMP, LIPID #### [facility] [address] [place] [address] Dr. Nestor Torres Cholesterol.total/Ch olesterol in HDL [Mass ratio] 2.8 {ratio} Normal [facility] Comment on above: Performed By: #### L IVKRANTHI FREIRE, LIPID #### [facility] [address] [place] [address] [address] Nestor Torres HDL NORMAL > or = 60 mg/dl - LOW CARDIOVASCULAR RISK <40 mg/dl - HIGH CARDIOVASCULAR RISK Normal [facility] Comment on above: Performed By: #### L IVTANI BMP, LIPID #### [facility] [address] [place] [address] [address] Nestor Torres LDL CALC NORMAL SEE BELOW Normal [facility] Comment on above: Result Comment: <100 mg/dl OPTIMAL 100 - 129 mg/dl NEAR OR ABOVE OPTIMAL 130 - 159 mg/dl BORDERLINE HIGH 160 - 189 mg/dl HIGH >190 mg/dl VERY HIGH Performed By: #### L IVTANI BMP, LIPID #### [facility] [address] [place] [address] [address] Nestor Torres Triglyceride [Mass/Vol] 100 mg/dL Normal <=[address] [facility] Comment on above: Performed By: #### L IVKRANTHI FREIRE, LIPID #### [facility] [address] [place] [address] [address] Nestor Torres VLDL CALC 20.0 mg/dL Normal [facility] Comment on above: Performed By: #### L IVTANI BMP, LIPID #### [facility] [address] [place] [address] [address] Nestor Torres LIVER PROFILEon 03-07-2022 Albumin [Mass/Vol] 4.1 g/dL Normal 3.4-5.0 [facility] Comment on above: Performed By: #### L IVTANI BMP, LIPID #### [facility] [address] [place] [address] [address] Nestor Torres Albumin/Globulin [Mass ratio] 1.4 {ratio} Normal [facility] Comment on above: Performed By: #### L IVER BMP, LIPID #### [facility] [address] [place] [address] [address] Nestor Torres ALP [Catalytic activity/Vol] 57 U/L Normal 46-[address] [facility] Comment on above: Performed By: #### L IVER, BMP, LIPID #### [facility] [address] [place] [address] Dr. Nestor Torres ALT [Catalytic activity/Vol] 43 U/L Normal 16-[address] [facility] Comment on above: Performed By: #### L IVER, BMP, LIPID #### [facility] [address] [place] [address] Dr. Nestor Torres AST [Catalytic activity/Vol] 26 U/L Normal 15-[address] [facility] Comment on above: Performed By: #### L IVER, BMP, LIPID #### [facility] [address] [place] [address] Dr. Nestor Torres BILI, CONJUGATED 0.1 mg/dL Normal 0.0-0.2 [facility] Comment on above: Performed By: #### L IVER, BMP, LIPID #### [facility] [address] [place] [address] Dr. Nestor Torres Bilirubin [Mass/Vol] 0.4 mg/dL Normal 0.2-1.[address] [facility] Comment on above: Performed By: #### L IVER, BMP, LIPID #### [facility] [address] [place] [address] Dr. Nsetor Torres Globulin (S) [Mass/Vol] 2.9 g/dL Normal [facility] Comment on above: Performed By: #### L IVER, BMP, LIPID #### [facility] [address] [place] [address] Dr. Nestor Torres Protein [Mass/Vol] 7.0 g/dL Normal 6.4-8.2 [facility] Comment on above: Performed By: #### L IVER, BMP, LIPID #### [facility] [address] [place] [address] Dr. Nestor Torres PROF CHEM 8 (BAS METB)on Anion gap [Moles/Vol] 10.6 mmol/L Normal [facility] Comment on above: Performed By: #### L IVER, BMP, LIPID #### [facility] [address] [place] [address] [address] Nestor Torres Calcium [Mass/Vol] 9.6 mg/dL Normal 8.5-10.1 [facility] Comment on above: Performed By: #### L IVER, BMP, LIPID #### [facility] [address] [place] [address] [address] Nestor Torres Chloride [Moles/Vol] 105 mmol/L Normal 98-[address] [facility] Comment on above: Performed By: #### L IVER, BMP, LIPID #### [facility] [address] [place] [address] [address] Nestor Torres CO2 [Moles/Vol] 28.2 mmol/L Normal 21.0-32.0 [facility] Comment on above: Performed By: #### L IVER, BMP, LIPID #### [facility] [address] [place] [address] [address] Nestor Torres Creatinine [Mass/Vol] 1.03 mg/dL Normal 0.70-1.[address] [facility] Comment on above: Performed By: #### L IVER, BMP, LIPID #### [facility] [address] [place] [address] [address] Nestor Torres EGFR-AF IRANIAN >60 Normal >=60 [facility] Comment on above: Performed By: #### L IVER, BMP, LIPID #### [facility] [address] [place] [address] [address] Nestor Torres EGFR-NON AF IRANIAN >60 Normal >=[address] [facility] Comment on above: Performed By: #### L IVER, BMP, LIPID #### [facility] [address] [place] [address] [address] Nestor Torres Glucose [Mass/Vol] 113 mg/dL Critically high 74-106 [facility] Comment on above: Performed By: #### L IVER, BMP, LIPID #### [facility] [address] [place] [address] [address] Nestor Torres Potassium [Moles/Vol] 3.8 mmol/L Normal 3.5-5.[address] [facility] Comment on above: Performed By: #### L IVER, BMP, LIPID #### [facility] [address] [place] [address] Dr. Nestor Torres Sodium [Moles/Vol] 140 mmol/L Normal 136-145 [facility] Comment on above: Performed By: #### L IVER, BMP, LIPID #### [facility] [address] [place] [address] Dr. Nestor Torres Urea nitrogen [Mass/Vol] 22.0 mg/dL Critically high 7.0-18.[address] [facility] Comment on above: Performed By: #### L IVER, BMP, LIPID #### [facility] [address] [place] [address] Dr. Nestor Torres Urea nitrogen/Creatinine [Mass ratio] 21.4 mg/mg Normal [facility] Comment on above: Performed By: #### L IVER, BMP, LIPID #### [facility] [address] [place] [address] Dr. Nestor Torres VITAMIN D 25 OHon 03-07-2022 VIT D 25-OH 29.6 ng/mL Normal [facility] Comment on above: Performed By: #### P SASC, VITAD #### [facility] [address] [place] [address] Dr. Nestor Torres VIT D RANGES SEE BELOW Normal [facility] Comment on above: Result Comment: <20 ng/mL Vit D deficient 20 - <30 ng/mL Vit D insufficient 30 - 100 ng/mL Vit D sufficient >100 ng/mL Potential Toxicity Performed By: #### P SASC, VITAD #### [facility] [address] [place] [address] Dr. Nestor Torres Vital Signs Date Time Vital Sign Value Performing Clinician Juvencio daly 06-01-2024 11:32-0500 Body height 177.8 cm Geovanny Colon MD Work Phone: [facility] 06-01-2024 11:32-0500 Body mass index (BMI) [Ratio] 22.96 kg/m2 Geovanny Colon MD Work Phone: [facility] 06-01-2024 11:32-0500 Body temperature 97.5 [degF] Geovanny Colon MD Work Phone: [facility] 06-01-2024 11:32-0500 Body weight 72.58 kg Geovanny Colon MD Work Phone: [facility] 06-01-2024 11:32-0500 Diastolic blood pressure 66 mm[Hg] Geovanny Colon MD Work Phone: [facility] 06-01-2024 11:32-0500 Heart rate 65 /min Geovanny Colon MD Work Phone: [facility] 06-01-2024 11:32-0500 Respiratory rate 18 /min Geovanny Colon MD Work Phone: [facility] 06-01-2024 11:32-0500 SaO2% (BldA) [Mass fraction] 97 % Geovanny Colon MD Work Phone: [facility] 06-01-2024 11:32-0500 Systolic blood pressure 124 mm[Hg] Geovanny Colon MD Work Phone: [facility] 03-25-2024 11:21-0500 Body height 177.8 cm Geovanny Colon MD Work Phone: [facility] 03-25-2024 11:21-0500 Body mass index (BMI) [Ratio] 23.39 kg/m2 Geovanny Colon MD Work Phone: [facility] 03-25-2024 11:21-0500 Body temperature 97.3 [degF] Geovanny Colon MD Work Phone: [facility] 03-25-2024 11:21-0500 Body weight 73.94 kg Geovanny Colon MD Work Phone: [facility] 03-25-2024 11:21-0500 Diastolic blood pressure 64 mm[Hg] Geovanny Colon MD Work Phone: [facility] 03-25-2024 11:21-0500 Heart rate 58 /min Geovanny Colon MD Work Phone: [facility] 03-25-2024 11:21-0500 Respiratory rate 18 /min Geovanny Colon MD Work Phone: [facility] 03-25-2024 11:21-0500 SaO2% (BldA) [Mass fraction] 99 % Geovanny Colon MD Work Phone: [facility] 03-25-2024 11:21-0500 Systolic blood pressure 136 mm[Hg] Geovanny Colon MD Work Phone: [facility] Encounters Encounter Date Encounter Type Care Provider Facility Start: 06-01-2024 End: 06-01-2024 Bamboo flowsheet Geovanny Colon MD Work Phone: [facility] Start: 06-01-2024 End: 06-01-2024 Bamboo flowsheet Geovanny Colon MD Work Phone: [facility] Start: 06-01-2024 End: 06-01-2024 Patient encounter procedure Geovanny Colon MD Work Phone: [facility] Work Phone: Start: 06-01-2024 End: 06-01-2024 Postop follow up visit related to original px Geovanny Colon MD Work Phone: [facility] Comment on above: Medicare annual well ness visit, subsequent (Primary Dx) Start: 06-01-2024 End: 06-01-2024 ambulatory GEOVANNY COLON Not Available Start: 03-26-2024 End: 03-26-2024 Clinisync Result Encounter Geovanny Colon MD Work Phone: [facility] Unsolicited Start: 03-26-2024 End: 03-26-2024 Clinisync Result Encounter Geovanny Colon MD Work Phone: [facility] Unsolicited Start: 03-25-2024 End: 03-25-2024 Bamboo flowsheet Geovanny Colon MD Work Phone: [facility] Start: 03-25-2024 End: 03-25-2024 Bamboo flowsheet Geovanny Colon MD Work Phone: [facility] Start: 03-25-2024 End: 03-25-2024 Office outpatient visit 25 minutes Geovanny Colon MD Work Phone: [facility] Comment on above: Idiopathic hypotensi on (Primary Dx); Primary insomnia; Dyslipidemia (CMS/HCC); Encounter for long-term current use of medication; Fatigue, unspecified type; Screening PSA (prostate specific antigen) Start: 03-25-2024 End: 03-25-2024 ambulatory GEOVANNY COLON Not Available Start: 07-10-2022 End: [address] DOCTOR MARTINEZ Facility:[facility] Start: 04-14-2022 Encounter for preprocedural laboratory examination DR CAMERON WOODS . [facility] Start: 04-13-2022 End: 04-14-2022 ambulatory Cameron WOODS Facility:CD:[id number] Start: 04-10-2022 End: 04-11-[address] CAMERON WOODS . Facility:[facility] Start: 04-10-2022 End: 04-11-2022 Encounter for preprocedural laboratory examination DR CAMERON WOODS . Facility:[facility] Start: 04-04-2022 End: 04-05-2022 ambulatory [facility] Start: 03-21-2022 ambulatory Cameron WOODS Facility: [facility] Start: 03-07-2022 End: 03-08-[address] GEOVANNY COLON Facility:[facility] Procedures Date Procedure Procedure Detail Performing Clinician Start: 03-26-2024 ALL CBC WITH AUTO DIFF Geovanny Colon MD Work Phone: Start: 04-13-2022 Colonoscopy Geovanny freire MD Work Phone: Start: 03-07-[address] LOGAN WOODS . Comment on above: Performed By: #### P SASC, VITAD #### [facility] [address] [place] [address] Dr. Nestor Torres Plan of Treatment Date Care Activity Detail Author Start: 04-13-2032 Screening for malign ant neoplasm of colon [facility] Start: 06-02-2025 End: 06-02-2025 Patient encounter procedure 06/02/2025 10:00 AM EST Office Visit [facility] [address] [place] [address] Geovanny Colon MD [address] [place] [address] [facility] Start: 06-01-2024 End: 06-01-2024 Patient encounter procedure [facility] Comment on above: Arrived Start: 03-25-2024 End: 03-25-2025 Basic metabolic 1998 panel - Serum or Plasma Basic metabolic panel Lab Routine Encounter for long-term current use of medication Expected: 03/25/2024 (Approximate), Expires: 03/25/2025 [facility] Work Phone: Comment on above: Expected: 03/25/2024 (Approximate), Expires: 03/25/2025 Start: 03-25-2024 End: 03-25-2025 CBC W Auto Differential panel - Blood CBC and differential Lab Routine Encounter for long-term current use of medication Expected: 03/25/2024 (Approximate), Expires: 03/25/2025 [facility] Comment on above: Expected: 03/25/2024 (Approximate), Expires: 03/25/2025 Start: 03-25-2024 End: 03-25-2025 Hepatic function 2000 panel - Serum or Plasma Hepatic function panel Lab Routine Encounter for long-term current use of medication Expected: 03/25/2024 (Approximate), Expires: 03/25/2025 [facility] Comment on above: Expected: 03/25/2024 (Approximate), Expires: 03/25/2025 Start: 03-25-2024 End: 03-25-2025 Lipid 1996 panel - Serum or Plasma Lipid panel Lab Routine Dyslipidemia (CMS/HCC) Expected: 03/25/2024 (Approximate), Expires: 03/25/2025 [facility] Comment on above: Expected: 03/25/2024 (Approximate), Expires: 03/25/2025 Start: 03-25-2024 End: 03-25-2025 Prostate specific Ag [Mass/volume] in Serum or Plasma PSA Lab Routine Screening PSA (prostate specific antigen) Expected: 03/25/2024 (Approximate), Expires: 03/25/2025 [facility] Comment on above: Expected: 03/25/2024 (Approximate), Expires: 03/25/2025 Start: 03-25-2024 End: 03-25-2025 Thyrotropin [Units/volume] in Serum or Plasma TSH Lab Routine Fatigue, unspecified type Expected: 03/25/2024 (Approximate), Expires: 03/25/2025 [facility] Comment on above: Expected: 03/25/2024 (Approximate), Expires: 03/25/2025 Start: 03-25-2024 End: 03-25-2024 Patient encounter procedure 03/25/2024 11:15 AM EST Office Visit [facility] [address] [place] [address] Geovanny Colon MD [address] [place] [address] Arrived [facility] Comment on above: Arrived Start: 03-12-2024 Medicare Annual Wellness (AWV) Medicare Annual Wellness (AWV) [facility] Start: 02-10-2020 Pneumococcal Vaccine : 65+ Years (2 of 2 - PPSV23 or PCV20) Pneumococcal Vaccine: 65+ Years (2 of 2 - PPSV23 or PCV20) [facility] Start: 04-06-2019 Pneumococcal Vaccine : 65+ Years (2 of 2 - PPSV23 or PCV20) Pneumococcal Vaccine: 65+ Years (2 of 2 - PPSV23 or PCV20) [facility] Start: 1955 Medicare Annual Wellness (AWV) Medicare Annual Wellness (AWV) [facility] Start: 1955 Screening for malign ant neoplasm of colon [facility] Payers Date Payer Category Payer Private Health Insurance [facility] [id number] 2019 Medicare MEDICARE [id number] 1959 Medicare [id number] 1959 Private Health Insurance [id number] 1953 Unknown [id number] 1953 Unknown [id number] 1953 Unknown [id number] 1953 Unknown [id number] 1953 Unknown [id number] 1953 Unknown [id number] [id number] 1953 Unknown [id number] 1953 Unknown [id number] Social History Date Type Detail Facility Tobacco smoking status KSBENITO Colon accounts payable lead smoking consumption unknown [facility] Start: 03-24-2024 End: 06-01-2024 History of Social function [facility] Start: 03-24-2024 End: 06-01-2024 [id number] Health Literacy [facility] How often do you nee d to have someone help you when you read instructions, pamphlets, or other written material from your doctor or pharmacy [SILS] Never [facility] Do you belong to any clubs or organizations such as synagogue groups, unions, fraternal or athletic groups, or school groups? No [facility] Are you now , , , , never or living with a partner? [facility] How often to you hav e a drink containing alcohol? 2-4 times a month [facility] How many standard dr inks containing alcohol do you have on a typical day? 1 or 2 [facility] How often do you hav e 6 or more drinks on 1 occasion? Never [facility] Do you feel stress - tense, restless, nervous, or anxious, or unable to sleep at night because your mind is troubled all the time - these days [OSQ] Not at all [facility] (I/We) worried whewellington er (my/our) food would run out before (I/we) got money to buy more. Never true [facility] Start: 1955 Sex assigned at Not on file [facility] Start: 03-25-2024 Tobacco smoking status KSIS Smokes t obacco daily [facility] History of tobacco use Cigarette Smoker [facility] Start: 03-25-2024 Tobacco use and exposure Smoke less tobacco non-user [facility] History of Present illness Narrative 06-01-2024 Geovanny Colon MD - 06/01/2024 12:03 PM Sarah Colon MD - 06/01/2024 11:30 AM EST Note Date & Type Note Facility 06-01-2024 History of Presen t illness Narrative Associated Problem(s): Medicare annual wellness visit, subsequent Reviewed labs. Discussed proper diet and regular aerobic exercise. Need aerobic exercise 5-6 days a week for 30 minutes at a time. Smaller portions and limit total calories. Colonoscopy every 10 years. Tetanus every 10 years. Advised not to smoke. Discussed daily Aspirin therapy. Images from the original note were not included. Subjective Patient ID: Arash Pantoja is a 68 y.o. male who presents for Medicare Annual Wellness Visit Initial (Welllness/). Presents for medicare annual wellness visit. Patient feels well today. Weight unchanged over the past year. Active and walks daily. Uses weights and treadmill when can't get outside. Tries to watch diet and eat healthy. Increased fruits and vegetables. Smaller portions and limits snacking. Tries to limit total daily calories. Reviewed recent labs. Review of Systems Constitutional: Negative for fatigue. Respiratory: Negative for cough, shortness of breath and wheezing. Cardiovascular: Negative for chest pain and palpitations. Gastrointestinal: Negative for abdominal pain, diarrhea, nausea and vomiting. Genitourinary: Negative for dysuria. Objective Physical Exam Constitutional: General: He is not in acute distress. Appearance: Normal appearance. HENT: Head: Normocephalic. Right Ear: Tympanic membrane and ear canal normal. Left Ear: Tympanic membrane and ear canal normal. Eyes: Extraocular Movements: Extraocular movements intact. Pupils: Pupils are equal, round, and reactive to light. Cardiovascular: Rate and Rhythm: Normal rate and regular rhythm. Heart sounds: No murmur heard. No friction rub. No gallop. Pulmonary: Breath sounds: Normal breath sounds. No wheezing, rhonchi or rales. Abdominal: General: Bowel sounds are normal. There is no distension. Palpations: Abdomen is soft. Tenderness: There is no abdominal tenderness. There is no guarding or rebound. Musculoskeletal: General: Normal range of motion. Left lower leg: No edema. Neurological: General: No focal deficit present. Mental Status: He is alert. Cranial Nerves: No cranial nerve deficit. Deep Tendon Reflexes: Reflexes normal. Assessment/Plan Problem List Items Addressed This Visit Medicare annual wellness visit, subsequent - Primary Reviewed labs. Discussed proper diet and regular aerobic exercise. Need aerobic exercise 5-6 days a week for 30 minutes at a time. Smaller portions and limit total calories. Colonoscopy every 10 years. Tetanus every 10 years. Advised not to smoke. Discussed daily Aspirin therapy. documented in this encounter [facility] History of Present illness Narrative 03-25-2024 Geovanny Colon MD - 03/25/2024 12:06 PM Sarah Colon MD - 03/25/2024 12:05 PM Sarah Colon MD - 03/25/2024 11:15 AM EST Note Date & Type Note Facility 03-25-2024 History of Presen t illness Narrative Associated Problem(s): Primary insomnia Not sleeping well and try trazodone. Associated Problem(s): Idiopathic hypotension Occasional low BP and at times symptomatic. BP normal today. Increased fluid intake. Increase dietary sodium. Check labs. If worsens can add florinef or midodrine. Images from the original note were not included. Subjective Patient ID: Arash Pantoja is a 68 y.o. male who presents for Follow-up (BP running low). Concerned of low BP. Donates blood regularly and BP often low. BP 118/72, 100/46, 108/58, and 108/60. Once visit not allowed to donate. Only home medication is baclofen at bedtime and has been on this for years. BP 136/64 today. Occasionally will have signs of low BP. At times feels lightheaded with position change. Notice if sit up or stand quickly. Symptoms last for few seconds then resolve. Occur few times a month. Tries to increase water intake. No LOC. C/o not sleeping well. Able to fall asleep but wakes up frequently. Often hard to get back to sleep and lays in bed for hours. Not rested in am and tired all day. OTC not helping. Review of Systems Constitutional: Negative for fatigue. Respiratory: Negative for cough, shortness of breath and wheezing. Cardiovascular: Negative for chest pain and palpitations. Gastrointestinal: Negative for abdominal pain, diarrhea, nausea and vomiting. Genitourinary: Negative for dysuria. Objective Physical Exam Constitutional: General: He is not in acute distress. Appearance: Normal appearance. HENT: Head: Normocephalic. Right Ear: Tympanic membrane and ear canal normal. Left Ear: Tympanic membrane and ear canal normal. Eyes: Extraocular Movements: Extraocular movements intact. Pupils: Pupils are equal, round, and reactive to light. Cardiovascular: Rate and Rhythm: Normal rate and regular rhythm. Heart sounds: No murmur heard. No friction rub. No gallop. Pulmonary: Breath sounds: Normal breath sounds. No wheezing, rhonchi or rales. Abdominal: General: Bowel sounds are normal. There is no distension. Palpations: Abdomen is soft. Tenderness: There is no abdominal tenderness. There is no guarding or rebound. Musculoskeletal: Left lower leg: No edema. Neurological: Mental Status: He is alert. Assessment/Plan Problem List Items Addressed This Visit Dyslipidemia (CMS/HCC) Relevant Orders Lipid panel Primary insomnia Not sleeping well and try trazodone. Relevant Medications traZODone (Desyrel) 50 MG tablet Idiopathic hypotension - Primary Occasional low BP and at times symptomatic. BP normal today. Increased fluid intake. Increase dietary sodium. Check labs. If worsens can add florinef or midodrine. Encounter for long-term current use of medication Relevant Orders Basic metabolic panel CBC and differential Hepatic function panel Fatigue Relevant Orders TSH Screening PSA (prostate specific antigen) Relevant Orders PSA documented in this encounter [facility] Clinical Note 04-13-2022 Note Date & Type Note Facility 04-13-2022 Note OPERATIVE NOTE OPERATION DATE: 04/13/2022 PREOPERATIVE DIAGNOSIS: Colorectal screening. POSTOPERATIVE DIAGNOSIS: Normal colonoscopy to cecum. PROCEDURE: Colonoscopy to cecum. SURGEON: Cameron Woods M.D. ANESTHESIA: Monitored anesthesia care. ESTIMATED [...] to recovery room in good condition. CC: Geovanny Colon M.D. [facility] Clinical Note 04-04-2022 Note Date & Type [...] Use:., 04/04/2022 Family History Patient was adopted [facility] Comment on above: Result Comment: Elec tronically Signed By: JUAN BASILIO, Cameron Pedro\Date and Time Signed: 04/04/22 16:33 EST Evaluation note Note Date & Type Note Facility Evaluation note Diagnosis Idiopathic hypotension- Primary Unspecified hypotension Primary insomnia Persistent disorder of initiating or maintaining sleep Dyslipidemia (CMS/HCC) Other and unspecified hyperlipidemia Encounter for long-term current use of medication Fatigue, unspecified type Screening PSA (prostate specific antigen) Special screening for malignant neoplasm of prostate documented in this encounter [facility] Evaluation note Note Date & Type Note Facility Evaluation note Diagnosis Idiopathic hypotension- Primary Unspecified hypotension Primary insomnia Persistent disorder of initiating or maintaining sleep Dyslipidemia (CMS/HCC) Other and unspecified hyperlipidemia Encounter for long-term current use of medication Fatigue, unspecified type Screening PSA (prostate specific antigen) Special screening for malignant neoplasm of prostate Medicare annual wellness visit, subsequent- Primary documented in this encounter [facility] Summary Purpose Family History No Family History Records FoundNo Family History Records FoundNo Family History Records Found Advance Directives No Advanced Directives Records FoundNo Advanced Directives Records FoundNo Advanced Directives Records Found Additional Source Comments (unrecognized sect ion and content) No Status Records FoundNo Status Records FoundNo Status Records Found INFORMATION SOURCE (unrecogn ized section and content) DATE CREATED AUTHOR 04/26/2022 [facility] DATE CREATED AUTHOR AUTHOR'S ORGANIZ ATION 07/14/2022 [facility] DATE CREATED AUTHOR AUTHOR'S ORGANIZ ATION 06/02/2024 [facility] [employer] Care Teams (unrecognized sec tion and content) Director Of Learning Relationship Specialty Start Date End Date Geovanny Colon MD [address] [place] [address] PCP - General Family Medicine 03/25/24 Director Of Learning Relationship Specialty Start Date End Date Geovanny Colon MD [address] [place] [address] PCP - General Family Medicine 03/25/24 Director Of Learning Relationship Specialty Start Date End Date Geovanny Colon MD [address] [place] [address] PCP - General [facility] 03/25/24 Director Of Learning Relationship Specialty Start Date End Date Geovanny Colon MD [address] [place] [address] PCP - General [facility] 03/25/24 Reason for Visit (unrecogniz ed section and content) Reason Comments Follow-up BP running low Reason Comments Medicare Annual Wellness Visit Initial W elllness FOR RECORDS PERTAINING TO PATIENTS WHO ARE [...] BE BASED ON THE PRIMARY CLINICAL RECORDS. [employer] provides no warranty or guarantee of the accuracy or completeness of information in this document.
--- NOTE | 2024-06-16 13:00 | XR_ITS ---
[facility] [place] [id number] Patient Name: MANI SAEZ MRN: [id number] date: 1955 Sex: M Assigned Patient Location: RAD Current Patient Location: Accession/Order Number: [id number] Exam Date: 06/16/2024 13:05 Report Date: 06/17/2024 13:30 At the request of: JAN COLON Procedure: XR tibia fibula LT 2V PROCEDURE: XR tibia fibula LT 2V COMPARISON: None. HISTORY: Foreign body in skin FINDINGS: BONES:Contour deformity of the tibia and fibula consistent with remote healed fractures. No acute fracture or dislocation. SOFT TISSUES:Noted in the anterior wild soft tissues is a 10 mm linear metallic foreign body, this corresponds to the patient's palpable abnormality and is demarcated with the BB marker EFFUSION:None visible. OTHER: Negative. XR/XR tibia fibula LT 2V IMPRESSION: 10 mm linear metallic wire corresponding to the patient's foreign body Electronically authenticated by: MIGUEL HOLT Date: 06/17/2024 13:30
== END 2024-06-16 12:48 | disposition home or self-care (01) ==
LOC: RAD 12:50
PROVIDERS: PCP Family Medicine; Visit Provider Family Medicine
DX: T14.8XXA Other injury of unspecified body region, initial encounter (principal); M79.5 Residual foreign body in soft tissue
CPT/HCPCS: 73590